=== PATIENT | male | born 1955 | race Caucasian/White ===

== ENCOUNTER 2021-07-12 10:38 | Emergency (ER) | payer OTHER, MEDICARE ==
[2021-07-13 13:07] LABS: SARS-CoV-2 NAA Detected (Not Detected)
== END 2021-07-12 12:03 | disposition home or self-care (01) ==
LOC: JVIRT 10:38
DX: U07.1 COVID-19 (principal)
CPT/HCPCS: C9803; Q3014-GT; U0003; U0005